=== PATIENT | male | born 1990 | race Caucasian/White ===

== ENCOUNTER 2023-09-17 14:53 | Emergency (ER) | payer OTHER, SELFPAY ==
[2023-09-17 14:56] VITALS: BP 134/85
--- NOTE | 2023-09-17 15:41 | ED.GENMED ---
History of Present Illness
General
Chief Complaint: Back Pain
Source: patient
Exam Limitations: none
Time Seen by Provider: 09/17/23 15:20
Nursing documentation reviewed up to this point in time: agreed with
Travel History
Have you had any contact with someone who has COVID-19?: No
Do you have any symptoms of coronavirus? Fever > 100 degrees, chills, cough, shortness of breath, sore throat, loss of taste or smell, muscle aches, or headache?: No
History of Present Illness
History of Present Illness:
Patient presents to ED secondary to gradually worsening lower back pain, left greater than right, over the past 2 weeks. Denies fever or chills. Denies nausea or vomiting. Denies loss of sensation or weakness. Denies urinary or bowel
incontinence. Denies direct trauma. Patient states that his symptoms worsened after going on trampoline with his son 1 week ago. 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 Denies previous history of back pain or injury. Patient has been taking Tylenol at
home with minimal relief in symptoms.
Review of Systems
Review of Systems
Allergies reviewed?: Yes
All Other Systems: ROS reviewed and negative except as documented in HPI and ROS
Constitutional: Reports no symptoms; Denies fever
EENT: Reports no symptoms
ABD/GI: Reports no symptoms
: Reports no symptoms; Denies incontinence
Musculoskeletal: Reports back pain
Skin: Reports no symptoms
Neurological: Reports no symptoms
Phy Exam
Physical Exam
Physical Exam:
Physical Exam
General: no apparent distress, not acutely ill. afebrile
Head: nc/at. eomi
Neck: supple. no meningeal signs
Abdomen: normal bowel sounds. not tender.
Back: no midline tenderness. no deformity. negative straight leg raise test. mild left lower back tenderness at level of L5/S1
Neuro: alert and oriented. no focal neurological deficits
Skin: no rash
Psychiatric: well kept. interactive and cooperative
Extremities: no edema. no calf tenderness.
Course
Orders/Labs/Results
Orders:
Orders
09/17/23 15:39
Ibuprofen [Motrin] 400 mg PO NOW STA
CR Lumbar Spine Comp Min 4 Vw* Urgent
Comment:
Reason For Exam: lower back pain
Vital Signs
Initial and Last Documented VS:
Initial Vital Signs
Temp Pulse Resp BP Pulse Ox
98.7 F 72 18 134/85 99
09/17/23 14:56 09/17/23 14:56 09/17/23 14:56 09/17/23 14:56 09/17/23 14:56
Last Documented Vital Signs
Temp Pulse Resp BP Pulse Ox
98.7 F 72 16 135/75 99
09/17/23 14:56 09/17/23 16:12 09/17/23 16:12 09/17/23 16:12 09/17/23 14:56
MDM/Problems Addressed
MDM/Problems Addressed:
History and exam consistent with likely peripheral nerve impingement with associated muscle spasm. Otherwise, patient is afebrile, and does not any physical exam findings concerning for cauda equina syndrome. Patient is able to ambulate with
steady gait independently, without much distress. Patient will be treated symptomatically with recommendation to continue to apply warm compress, use NSAIDs, along with Medrol Dosepak as an outpatient. Advised PCP follow-up as an outpatient, with
consideration to obtain MRI lumbar spine as an outpatient, if symptoms persist.
*Critical Care Note
Total Time (30-74mins, 75-104mins- exclusive of procedures): Not Applicable
ED Attending Note
-
Portions of this chart may have been created with voice recognition software.� Occasional wrong word or��sound alike� substitutions may have occurred due to the inherent limitations of voice recognition software.
Discharge Plan
Departure
Patient Disposition: Home (Routine Discharge)
Date of Disposition: 09/17/23
Time of Disposition: 16:13
Patient with high blood pressure during this ER visit?: Yes
Discharge Problem:
Back pain
Instructions: Low Back Pain (DC)
Prescriptions:
New
methylprednisolone [Medrol ([place])] 4 mg tablets,dose pack
4 mg PO DAILY Qty: 21 0RF
Referrals:
NONE,* [Family Provider] -
Activity Restrictions/Additional Instructions:
As discussed, please follow up with your primary care physician for re-evaluation, including potential MRI as outpatient, if symptoms persist. Your prescription has been sent electronically to [facility] pharmacy in [place].
Interventions
Interventions:
*Risk Screen - Suicide Last Done: 09/17/23 15:23
*General Assessment Last Done: 09/17/23 14:56
*Neglect/Abuse Screening Last Done: 09/17/23 15:23
*ED COVID-19 Vaccine History Last Done: 09/17/23 14:56
*Nursing Disposition Last Done: 09/17/23 16:12
ED-Musculoskeletal Assessment Last Done: 09/17/23 15:22
Discharge Date and Time
Discharge Date/Time: 09/17/23 16:28
[2023-09-17] MEDS: MOTRIN 400 MG PO (15:46)
[2023-09-17 16:12] VITALS: BP 135/75
== END 2023-09-17 16:28 | disposition home or self-care (01) ==
LOC: EMR 14:53
PROVIDERS: EMERGENCY PHYSICIAN Emergency Medicine
DX: M54.50 Low back pain, unspecified (principal); R03.0 Elevated blood-pressure reading, without diagnosis of hypertension
CPT/HCPCS: 99283; 72110